=== PATIENT | female | born 1950 ===

== ENCOUNTER → 2025-04-28 14:58 | Outpatient (REF) | payer MEDICARE, SELFPAY | LOC: RCS 14:58 | PROVIDERS: ATTENDING PHYSICIAN Internal Medicine Cardiovascular Disease; FAMILY PHYSICIAN Internal Medicine | DX: Z76.89 Persons encountering health services in other specified circumstances (principal); I47.10 Supraventricular tachycardia, unspecified | CPT/HCPCS: 93306 ==